=== PATIENT | female | born 1990 | race Caucasian/White ===

== ENCOUNTER 2017-10-28 16:56 | Emergency (ER) | payer BC, OTHER ==
[~2017-10-28] VITALS: Ht 167.6 cm; Wt 87.9 kg
[2017-10-28 17:03] VITALS: TEMP 36.9; Ht 167.6 cm; Wt 87.9 kg
[2017-10-28] MEDS ORDERED: BNT20 PO (17:56)
[2017-10-28] MEDS ORDERED: DIAZ-165 PO (17:56)
[2017-10-28] MEDS ORDERED: PANT40TA PO (17:56)
--- NOTE | 2017-10-28 17:58 | EMERGENCY ROOM VISIT NOTE ---
History Report prepared by Francia: Caryl Ocampo Under the Supervision of: Dr. Rome Flanagan M.D. First contact with patient: 17:32 Chief Complaint: NAUSEA Stated Complaint: NAUSEA,LOSS OF BALANCE,HIGH HEART RATE Nursing Triage Summary: Patient ambulatory to triage with a steady and upright gait, states "I have been prescribed Valium. I started it about 1-2 weeks ago. I have nausea and my vision is not very good. It is light. I am confused and dazed. I vomited three times yesterday and developed the diarrhea. I was prescribed Valium to control my sleeping habits at night. I don't think it is the right medication for me. I tried to contact the doctor who prescribed it. He told me to stop the medication but I am still having a reaction to it." Patient last took the Valium around 2200 last night. History of Present Illness The patient is a 27 year old female who presents to the Emergency Room with complaints of persistent nausea that began about a one week and a half ago. She states that 2 weeks ago she began taking 5mg of Valium for presumed sleep apnea. The patient reports that about 2 days after she started taking the medication she began feeling dizzy, drowsy, lightheaded, and "out of it", which seems to worsen the morning after she took the medication. She notes that she stopped taking the medication one day ago, but this morning she felt like her vision turned white while she was walking to her care. The patient states that she started vomiting one day ago. She notes that she has been drinking and eating normally. The patient denies any pain with urination or abnormal discharge. She reports that she should be getting her menstrual period in one week, noting she usually feels nauseous before she gets it. The patient would like to go home and follow up with her primary care physician, who recommended she come in if the symptoms persistent 48 hours after she stops taking her medication. Source of History: patient Onset: one week and a half ago Position: other (gastrointestinal) Quality: other (nausea) Timing: other (persistent) Modifying Factors (Worsening): other (morning after taking medication) Associated Symptoms: + vomiting Note: Associated symptoms include: dizzy, drowsy, lightheaded, "out of it". Denies: pain with urination and abnormal discharge. Review of Systems See HPI for pertinent positives and negatives. A total of ten systems were reviewed and were otherwise negative. Past Medical & Surgical Medical Problems: (1) Acid reflux (2) Irritable bowel syndrome Family History Patient reports no known family medical history. No pertinent family history. Social History Smoking Status: Never Smoker Smokeless Tobacco Use: No Alcohol Use: none Drug Use: none Marital Status: single Housing Status: lives alone Occupation Status: employed Current/Historical Medications Scheduled Diazepam (Valium), 5 MG PO DAILY Dicyclomine HCl (Dicyclomine HCl), 20 MG PO TIDM Ondasetron Odt (Zofran Odt), 4 MG SL Q6H Pantoprazole (Protonix), 40 MG PO DAILY Allergies Coded Allergies: No Known Allergies (Unverified , 10/28/17) Physical Exam Vital Signs Date Time Temp Pulse Resp B/P (MAP) Pulse Ox O2 Delivery O2 Flow Rate FiO2 10/28/17 18:08 106 18 141/75 97 10/28/17 17:03 36.9 108 20 134/92 99 Room Air Physical Exam GENERAL: Awake, alert, well-appearing, in no distress HENT: Normocephalic, atraumatic. Oropharynx unremarkable. EYES: Normal conjunctiva. Sclera non-icteric. NECK: Supple. No nuchal rigidity. FROM. No JVD. RESPIRATORY: Clear to auscultation. CARDIAC: ST. Extremities warm and well perfused. Pulses equal. ABDOMEN: Soft, non-distended. No tenderness to palpation. No rebound or guarding. No masses. RECTAL: Deferred. MUSCULOSKELETAL: Chest examination reveals no tenderness. The back is symmetrical on inspection without obvious abnormality. There is no CVA tenderness to palpation. No joint edema. LOWER EXTREMITIES: Calves are equal size bilaterally and non-tender. No edema. No discoloration. NEURO: Normal sensorium. No sensory or motor deficits noted. normal cerebellar function with [id number], alternating palms, [id number] SKIN: No rash or jaundice noted. Medical Decision & Procedures ED Course 1235: The patient was evaluated in room A7. A complete history and physical exam was perform. I discussed test findings with her and she verbalized complete understanding of the treatment plan. She states that she will be following up with her primary care physician and would like to go home. The patient is ready for discharge. Medical Decision I reviewed the patient's past medical history, medications, and the nursing notes as described above. The patient's presentation and history were concerning for near syncope. The patient is a 27 yo woman with a pmhx of anxiety and depression who presents to the emergency department with n/v and lightheadedness after being placed on valium for insomnia per HPI. Of note, patient reports calling her doctor and received a call-back recommending stopping her Valium and reassessing her sx in 48 hours, however the patient was already in the ED waiting room. On arrival the patient is well-appearing in NAD, AF with HR 100s and otherwise VSS. Neuro intact including normal cerebellar function with [id number], alternating palms, [id number]. Offered patient option for labs and IVF however patient preferred option for d/c with outpatient follow up given the patient was feeling better. Findings and plan for follow-up reviewed with patient. Patient agreeable and d/c'd per discharge instructions. Medication Reconcilliation Current Medication List: was personally reviewed by me Blood Pressure Screening Patient's blood pressure: Normal blood pressure Blood pressure disposition: Did not require urgent referral Impression Primary Impression: Nausea & vomiting Additional Impression: Lightheaded Scribe Attestation The scribe's documentation has been prepared under my direction and personally reviewed by me in its entirety. I confirm that the note above accurately reflects all work, treatment, procedures, and medical decision making performed by me. Departure Information Dispostion Home / Self-Care Prescriptions Ondasetron Odt (ZOFRAN ODT) 4 Mg Tab 4 MG SL Q6H for Nausea, #10 TAB Prov: Rome Flanagan M.D. 10/28/17 Referrals [facility] (PCP) Forms HOME CARE DOCUMENTATION FORM, IMPORTANT VISIT INFORMATION Patient Instructions Dizziness Balance Probs Fainting, ED Nausea Vomiting, My [facility] Additional Instructions Please follow up with your primary care physician in the next 1-3 days for re- evaluation. Your symptoms are most likely related to mild dehydration in the setting of poor tolerance to Valium. Otherwise, your exam did not show signs of an emergent condition at this time. Discontinue your Valium as instructed by your doctor. Zofran as needed for nausea. Drink plenty of fluids to ensure hydration. Do not drive if experiencing lightheadedness. Return to the emergency department for worsening symptoms as described in the accompanying instructions. Work Instructions Return To Work: 3 days Problem Qualifiers
[2017-10-28] MEDS ORDERED: ONDA4TAB10 SL (17:59)
[2017-10-28 18:08] VITALS: BP 141/75; PULSE 106; O2SAT 97
== END 2017-10-28 18:09 | disposition home or self-care (01) ==
LOC: C.EDB 16:59 → C.EDA 18:09
DX: R11.2 Nausea with vomiting, unspecified (principal); R42 Dizziness and giddiness; K21.9 Gastro-esophageal reflux disease without esophagitis; K58.9 Irritable bowel syndrome, unspecified